=== PATIENT | male | born 1995 | race Caucasian/White ===

== ENCOUNTER 2019-10-17 15:15 | Emergency (ER) | payer MEDICAID ==
[2019-10-17 15:30] VITALS: O2SAT 99
[2019-10-17] MEDS ORDERED: XYLOCAINE VISCOUS 2% 20 ML CUP PO ONE (15:40)
--- NOTE | 2019-10-17 15:45 | ERPHSYRPT ---
- History of Present Illness Time Seen by Provider: 10/17/19 15:35 Source: patient Exam Limitations: no limitations Patient Subjective Stated Complaint: "my bottom lower back tooth on the right side has been hurting for the past couple of weeks, worse in the past couple of days. I don't have any insurance so I don't go to the dentist. I have taken approx 2400mg of ibuprofen today. My pain was a 8/10 and now is about a 3/10 scale. Pain is constant sharp pain" Triage Nursing Assessment: Pt presents to ER with complaints of right lower posterior tooth pain. Tooth decay present, no facial swelling noted or drainage from gums. Pt is alert and oriented x 3, able to ambulate and communicate normally. Denies any other symptoms besides pain. Pt lungs clear and resp equal throughout. Pt denies n,v,d. Has headache, denies dizziness. Taking OTC meds for pain but pain is still constant. Physician History: 23-year-old white male presents with a complaint of abdominal pain present for 2 weeks worse last 2 days can afford to see a dentist had a fracture of the tooth sometime back. Timing/Duration: gradual onset Severity: moderate ENT Location: dental Prearrival Treatment: no prearrival treatment Modifying Factors: Improves With: nothing Associated Symptoms: headache, tooth pain Allergies/Adverse Reactions: methenamine Adverse Reaction (Verified 10/17/19 15:30) Hx Tetanus, Diphtheria Vaccination/Date Given: Yes Hx Influenza Vaccination/Date Given: No Hx Pneumococcal Vaccination/Date Given: No Immunizations Up to Date: Yes - Review of Systems Constitutional: No Fever, No Chills Eyes: No Symptoms Ears, Nose, & Throat: No Symptoms, Mouth Pain Respiratory: No Cough, No Dyspnea Cardiac: No Chest Pain, No Edema, No Syncope Abdominal/Gastrointestinal: No Abdominal Pain, No Nausea, No Vomiting, No Diarrhea Genitourinary Symptoms: No Dysuria Musculoskeletal: No Back Pain, No Neck Pain Skin: No Rash Neurological: No Dizziness, No Focal Weakness, No Sensory Changes Psychological: No Symptoms Endocrine: No Symptoms All Other Systems: Reviewed and Negative - Past Medical History Pertinent Past Medical History: Yes Cardiac History: Hypertension Psycho-Social History: Anxiety, Depression, Panic Disorder Male Reproductive Disorders: Other 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 - Past Surgical History Past Surgical History: Yes Gastrointestinal: Cholecystectomy Other Surgical History: wisdom teeth - Social History Smoking Status: Never smoker Exposure to second hand smoke: No Drug Use: marijuana Patient Lives Alone: No - Nursing Vital Signs Nursing Vital Signs: Initial Vital Signs Temperature 98.2 F 10/17/19 15:22 Pulse Rate 71 10/17/19 15:22 Respiratory Rate 18 10/17/19 15:22 Blood Pressure 183/81 10/17/19 15:22 O2 Sat by Pulse Oximetry 99 10/17/19 15:22 Pain Scale Pain Intensity 3 - Physical Exam General Appearance: no apparent distress, alert Eye Exam: bilateral eye: PERRL, EOMI Nasal Exam: normal inspection Throat Exam: pharynx normal, dental tenderness (fracture right mandibular molar noted), moist mucus membranes, No tonsillar exudate Neck Exam: supple Cardiovascular/Respiratory Exam: normal breath sounds, regular rate/rhythm Abdominal Exam: non-tender, soft Neurologic Exam: alert, oriented x 3, sensation nml, No motor deficits Skin Exam: normal color, warm, dry SpO2: 99 - Course Nursing assessment & vital signs reviewed: Yes - Progress Progress: unchanged - Departure Departure Disposition: Home Clinical Impression: Pain, dental Condition: Stable Critical Care Time: No Instructions: Dental Pain (DC) Prescriptions: Amoxicillin 875 mg PO BID 10 Days #20 tablet
[2019-10-17] MEDS ORDERED: XYLOCAINE HCl Viscous ONE (16:04)
[2019-10-17 17:06] VITALS: BP 125/81; PULSE 59
[2019-10-17] MEDS ORDERED: VOLTAREN 50 MG PO SCH (22:00)
== END 2019-10-17 16:59 | disposition home or self-care (01) ==
LOC: ED 15:15
DX: K08.89 Other specified disorders of teeth and supporting structures (principal)
CPT/HCPCS: 99283; A9270-GY